=== PATIENT | male | born 1975 | race Hispanic/Latino ===

== ENCOUNTER 2020-03-11 17:28 | Emergency (ER) | payer OTHER ==
[~2020-03-11] VITALS: Ht 165.1 cm; Wt 86.2 kg
--- NOTE | 2020-03-11 18:24 | Diagnostic Imaging Report ---
Exam: Right foot radiographs - 3 views Clinical History: Pain. Comparison: None. Findings/Impression: No evidence of acute fracture or malalignment. Mild soft tissue edema in the foot. Plantar calcaneal spur. Mild degenerative changes in the midfoot. Signed by: Dr. Prachi Johns MD on 03/11/2020 6:20 PM
[2020-03-11] MEDS ORDERED: PREDNISONE20 MG PO (18:31)
[2020-03-11] MEDS ORDERED: NAPROSYN500 MG PEG (18:31)
[2020-03-11 18:36] VITALS: BP 116/73
== END 2020-03-11 18:41 | disposition home or self-care (01) ==
LOC: FSED 17:28
DX: M79.671 Pain in right foot (principal)
CPT/HCPCS: 99283

== ENCOUNTER 2021-12-18 08:58 | Emergency (ER) | payer OTHER ==
[~2021-12-18] VITALS: Ht 165.1 cm; Wt 88.5 kg
[~2021-12-18 08:58] MED LIST: NAPROSYN500 MG PEG; PREDNISONE20 MG PO
[2021-12-18] MEDS ORDERED: ALLOPURINOL100 MG PO (09:34)
[2021-12-18] MEDS ORDERED: KETOROLAC TROMETHAMINE 30 MG/ML VIAL IM STA (10:21)
[2021-12-18] MEDS ORDERED: DEXAMETHASONE SOD PHOS 10 MG/1 ML VIAL IM ONE (10:30)
[2021-12-18] MEDS ORDERED: NAPROSYN500 MG PO (10:39)
[2021-12-18] MEDS ORDERED: PREDNISONE20 MG PO (10:39)
[2021-12-18] MEDS ORDERED: KETOROLAC TROMETHAMINE 30 MG/ML VIAL ONE (10:47)
[2021-12-18] MEDS ORDERED: DEXAMETHASONE SOD PHOS INJ 4 MG/ML SDV ONE (10:47)
== END 2021-12-18 11:08 | disposition home or self-care (01) ==
LOC: FSED 10:22
DX: M79.672 Pain in left foot (principal); M10.9 Gout, unspecified
CPT/HCPCS: 96372; 99283; J1100; J1885